=== PATIENT | male | born 1995 | race Caucasian/White ===

== ENCOUNTER → 2018-12-13 | Outpatient (REF) | payer BC ==
[2018-12-14 12:55] LABS: CHLAMYDIA DNA AMPLIFICATION NEGATIVE (NEGATIVE); GC DNA AMPLIFICATION NEGATIVE (NEGATIVE)
== END ==
LOC: M SFHCLERA 20:23
PROVIDERS: ATTEND Nurse Practitioner Family
DX: M54.5 Low back pain (principal)

== ENCOUNTER → 2022-06-08 | Outpatient (CLI) | payer BC | LOC: M LABSMTC 10:51 | PROVIDERS: ATTEND Anesthesiology | DX: Z01.818 Encounter for other preprocedural examination (principal) ==

== ENCOUNTER 2022-06-13 08:06 | Day surgery (SDC) | payer BC ==
[~2022-06-13] VITALS: Ht 170.2 cm; Wt 87.1 kg
[~2022-06-13 08:06] MED LIST: NS 1,000 ML IV ONE; propofoL 500 MG/50 ML VIAL As Ordered ONE
[2022-06-13 10:10] VITALS: BP 171/82
== END 2022-06-13 10:22 | disposition home or self-care (01) ==
LOC: M OPP 08:06
PROVIDERS: ATTEND Internal Medicine Gastroenterology
DX: K63.89 Other specified diseases of intestine (principal); K52.9 Noninfective gastroenteritis and colitis, unspecified; K64.4 Residual hemorrhoidal skin tags; K64.8 Other hemorrhoids; Z80.0 Family history of malignant neoplasm of digestive organs; K31.89 Other diseases of stomach and duodenum; Z80.52 Family history of malignant neoplasm of bladder